=== PATIENT | female | born 1955 | race Caucasian/White ===

== ENCOUNTER 2019-10-19 14:11 | Outpatient (CLI) | payer OTHER, SELFPAY ==
--- NOTE | 2019-10-24 22:24 | P.PCNPFT_ITS ---
PFT Interpretation PFT Interpretation: DOS: 10/19/2019 REQUESTING: Dr. Tucker REASON FOR TESTING: Shortness of breath PULMONARY FUNCTION TESTS Results are reproducible and reliable. Spirometry: FEV1 is 74%, mildly decreased. FVC is 84%, normal. FEV1% is decreased. NEF92-58% is severely decresed at 34%, and increases 26% with br onchodilator. Lung volumes: TLC 102%, normal. RV increased at 122%. Increased airway resistance 178% predicted. Diffusion: DLCO is mildly decreased 74%. Flow volume loop: Scooping of the expiratory limb. IMPRESSION: Mild obstructive ventilatory impairment, which is severe in the small airways with good response to bronchodilator, mild air trapping, and mild diffusion impairment. Jaky Tucker MD
== END 2019-10-19 14:12 | disposition home or self-care (01) ==
LOC: ANHPFT 14:13
PROVIDERS: PCP Family Medicine; Visit Provider Internal Medicine Critical Care Medicine
DX: R05 Cough (principal); R91.8 Other nonspecific abnormal finding of lung field
CPT/HCPCS: 94060; 94726; 94729

== ENCOUNTER 2019-10-26 09:11 | Outpatient (CLI) | payer OTHER, SELFPAY ==
--- NOTE | ~2019-10-26 | CT_ITS ---
EXAMINATION:CT chest high resolution wo va DATE: 10/26/2019 09:56 INDICATION: Cough. TECHNIQUE: Computed tomography (CT) of the chest was performed without intravenous contrast. Automate d exposure control and iterative reconstruction technique were employed. The dose-length product (DLP ) was 140.63 mGy-cm. COMPARISON: Chest CT 10/19/2018 FINDINGS: There is mild scarring at the lung apices. There is mild bronchiectasis in right middle lob e and lingula with mucous plugging. There are centrilobular nodules and tree-in-bud opacities and mil d airspace and groundglass opacities in right middle lobe and lingula with areas of volume loss. No p leural effusion. The heart size is normal. No pericardial effusion. There is levoscoliosis of upper t horacic spine and dextroscoliosis of lower thoracic spine. There is mild thoracic spondylosis. IMPRESSION: 1. 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 Reviewed, dictated and finalized at location B. IMPRESSION: 1. 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
--- NOTE | ~2019-10-26 | XR_ITS ---
XR chest 2V DATE: 10/26/2019 09:53 INDICATION: Chronic cough. Known lung nodules. TECHNIQUE: PA and lateral views COMPARISON: 10/26/2019 CT thorax FINDINGS: There is bilateral hyperinflation. There is chronic infiltrate, atelectasis or fibrotic change overlying the middle lobe and lingula on the lateral view; otherwise no pulmonary infiltrate or consolidation, pleural effusion or pulmonary v ascular congestion or pneumothorax is evident. Normal heart size. No hilar or mediastinal enlargement. Scoliosis of the thoracic spine. IMPRESSION: Chronic infiltrate, atelectasis or scarring overlying middle lobe and lingula Bilateral hyperinflation. Reviewed, dictated and finalized at location A. IMPRESSION: Chronic infiltrate, atelectasis or scarring overlying middle lobe a nd lingula Bilateral hyperinflation.
== END 2019-10-26 09:12 | disposition home or self-care (01) ==
PROVIDERS: PCP Family Medicine; Visit Provider Internal Medicine Critical Care Medicine
DX: R05 Cough (principal); R91.1 Solitary pulmonary nodule; R91.8 Other nonspecific abnormal finding of lung field
CPT/HCPCS: 71046; 71250

== ENCOUNTER 2019-11-13 01:22 | Outpatient (CLI) | payer OTHER, SELFPAY ==
[2019-11-13 16:17] LABS: SARS-CoV-2 RNA PCR Negative
== END 2019-11-13 01:23 | disposition home or self-care (01) ==
LOC: ANHCOVIDDT 01:23
PROVIDERS: PCP Family Medicine; Visit Provider Internal Medicine Critical Care Medicine
DX: Z01.812 Encounter for preprocedural laboratory examination (principal); Z20.828 Contact with and (suspected) exposure to other viral communicable diseases
CPT/HCPCS: 87635; C9803; U0003

== ENCOUNTER 2019-11-15 00:32 | Day surgery (SDC) | payer OTHER, SELFPAY ==
[2019-11-09 11:27] VITALS: BMI 22.4
[2019-11-15] VITALS (7 sets, daily range): BP systolic 115–149; BP diastolic 64–97; PULSE 43–52; RESP 11–18; TEMP 36–36.9; O2SAT 96–100
[2019-11-15] MEDS: LACTATED RINGERS 1,000 ML 150 ML IV CONT (11:48)
--- NOTE | 2019-11-15 12:35 | WPDANESEPPF ---
Anes - Initial Pre Proc Eval Procedure: Operation Date: 11/15/19 13:00 Proposed Procedures p Flexible Bronchoscopy - Jaky Tucker MD Date/Time: 11/15/19 12:35 Surgeon: Jaky Tucker MD Pre Op Diagnosis: Chronic Cough Patient Data Age: 64 Gender: F Height: 5 ft 6 in Weight: 64.8 kg Last Vital Signs Temp 36.9 C 11/15/19 11:45 Pulse 52 L 11/15/19 11:45 Resp 18 11/15/19 11:45 BP 149/97 H 11/15/19 11:45 Pulse Ox 98 11/15/19 11:45 Allergies Allergy/AdvReac Type Severity Reaction Status Date / Time Penicillins Allergy Unknown Unknown Verified 11/15/19 11:41 Home Medications Medication Instructions Recorded Confirmed Type calcium carbonate 500 mg calcium 500 mg PO DAILY 10/22/19 11/09/19 History (1,250 mg) tablet cholecalciferol (vitamin D3) 25 25 mcg PO DAILY 10/22/19 11/09/19 History mcg (1,000 unit) tablet omega 9-pnk-cdz-fish oil 1,000 mg 1 cap PO DAILY 10/22/19 11/09/19 History (120 mg-180 mg) capsule Patient hx anesthesia problems: none Family hx anesthesia problems: none PMFSH Past Medical History Medical History Chronic cough Chronic kidney disease Elevated BP without diagnosis of hypertension Multiple pulmonary nodules determined by computed tomography of lung Pneumonia Family History Family History Sibling Depression Hypertension Father Cerebrovascular accident Family history of chronic obstructive pulmonary disease Family history of Alzheimer's disease Depression Family history of kidney stones Family history of dementia Mother Family history of congestive heart failure Family history of cardiovascular disease Other Family history of Parkinson's disease Family history of atrial fibrillation Social History Social History Smoking status: Never smoker Alcohol intake: current Anes - Eval Final PreProcedure Day of Procedure 11/15/19 12:35 Patient weight: normal Heart: regular rate and rhythm Lungs: rales Airway: Mallampati scale class 1 Neurological: alert and oriented Last oral intake: >/= 8 hours ASA classification: II Emergent: no Anesthetic plan: proceed Anesthesia type and monitoring: general LMA and standard monitoring Informed Consent: The patient's anesthetic plan and its attendant risks and benefits were discussed with the patient/family/POA. Questions were solicited and answers provided to the satisfaction of the patient/family/POA.
--- NOTE | 2019-11-15 12:39 | PM.IMHP ---
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 Last office visit 09/26/2019. She has been stable since that visit, no new meds, diagnoses or change in symptoms. She had initial symptoms with fever in October 2016 and congestion, walking pneumonia in November of 2016 treated with antibiotics. Chest CT November 29 showed lung nodules and emphysema. She had ground-glass opacities in the right upper lobe and scattered small bilateral nodules in both lungs. She has no occupational exposure, and does not have a history of exposure to fowl. She had no exposure to moldy substances, moist conditions, dangerous fumes, dusts or vapors. She has nasal drainage especially in the winter. she attempted to provide sputum for SIVAKUMAR, [employer] but was never able to expectorate. She has chronic kidney disease which is being closely followed. 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 She has had renal problems with abnormal values since 2012. She has had calcium oxalate kidney stones, followed by Dr Von Latham in [place]. DATA: * 11/27/2016 - chest CT ground-glass opacities in the right upper lobe, small bilateral nodules 6 mm or less bilaterally, RML and AURELIANO; mild emphysema. * 10/29/2018 - chest CT - progression of small centrilobular nodules, tree-in-bud lesions, mild bronchiectasis, and numerous bilateral nodules, most likely consistent with chronic atypical pneumonia specifically SIVAKUMAR - Mycobacterium avium intracellulare. * 01/19/2017 PFT FEV1 88%, FEV1% is decreased 68%, [id number] - 45%, no change with bronchodilator; TLC 104%, RV 122%, Raw 226%, DLCO 107%. Small airways pattern, air trapping, no response to bronchodilator. MEDS: Fish oil, Calcium, multivitamin PMH: calcium oxalate kidney stones, CKD stage II, pulmonary nodules, Walking pneumonia November 2016. Review of Systems Review of Systems: All systems reviewed & are unremarkable except as noted in HPI and below (HPI) [facility] Past Medical History Medical History Chronic cough Chronic kidney disease Elevated BP without diagnosis of hypertension Multiple pulmonary nodules determined by computed tomography of lung Pneumonia Family History Family History Sibling Depression Hypertension Father Cerebrovascular accident Family history of chronic obstructive pulmonary disease Family history of Alzheimer's disease Depression Family history of kidney stones Family history of dementia Mother Family history of congestive heart failure Family history of cardiovascular disease Other Family history of Parkinson's disease Family history of atrial fibrillation Social History Social History Smoking status: Never smoker Alcohol intake: current Meds Home Medications and Allergies Home Medications Medication Instructions Recorded Confirmed Type calcium carbonate 500 mg calcium 500 mg PO DAILY 10/22/19 11/09/19 History (1,250 mg) tablet cholecalciferol (vitamin D3) 25 25 mcg PO DAILY 10/22/19 11/09/19 History mcg (1,000 unit) tablet omega 0-pov-yzk-fish oil 1,000 mg 1 cap PO DAILY 10/22/19 11/09/19 History (120 mg-180 mg) capsule Allergies Allergy/AdvReac Type Severity Reaction Status Date / Time Penicillins Allergy Unknown Unknown Verified 11/15/19 11:41 Vital Signs Vital Signs - 24 hr 11/15/19 11:45 Temperature 36.9 C Pulse Rate 52 L Respiratory Rate 18 Blood Pressure 149/97 H Pulse Oximetry 98 Exam Const: General: comfortable and no acute distress HENMT: Other: Mallampati III, moist membranes,
[2019-11-15] MEDS: LIDOCAINE HCL 2% LOCAL INJ 20 ML VIAL 12 ML INFILTRATE (13:21)
--- NOTE | 2019-11-15 13:27 | SUR.OPER ---
300ml Normal Saline administered per irrigation LOT #[id number] EXP. 2021. Suctioned 51ml out by Dr. Tucker during procedure.
[2019-11-15 14:00] LABS: Source Bronchial Fluid Bronchial Lavage
[2019-11-15 14:01] LABS: Appearance Bronchial Fluid Cloudy; Color Bronchial Fluid Colorless; Lymphocytes Bronchial Fluid 15 %; Monocytes Bronchial Fluid 6 %; Neutrophils Bronchial Fluid 75 %
[2019-11-15 14:02] LABS: Other Cells Bronchial Fluid 4 %
== END 2019-11-15 14:37 | disposition home or self-care (01) ==
PROVIDERS: PCP Family Medicine; Visit Provider Internal Medicine Critical Care Medicine
PROC: 0BJ08ZZ Inspection of Tracheobronchial Tree, Via Natural or Artificial Opening Endoscopic (ICD-10-PCS; CPT 31622; principal; 2019-11-15 13:00)
DX: R05 Cough (principal); R91.8 Other nonspecific abnormal finding of lung field; J98.4 Other disorders of lung; N18.9 Chronic kidney disease, unspecified
CPT/HCPCS: 31624; 85999; 87015; 87102; 87116; 87206; 88108; J1100; J2001; J2405; J2704; J7040; J7120

== ENCOUNTER 2020-02-01 16:44 | Outpatient (CLI) | payer OTHER, SELFPAY ==
--- NOTE | ~2020-02-01 | MM_ITS ---
EXAMINATION: MM screening [facility] BI w cara HISTORY: Screening mammogram TECHNIQUE: Craniocaudal and mediolateral oblique 3-D tomosynthesis images were obtained and synthetic 2-D images were generated. CAD analysis was submitted and interpreted. COMPARISON: 12/31/2018, 11/27/2016, 10/10/2014 BREAST PARENCHYMAL COMPOSITION: There are scattered areas of fibroglandular density. FINDINGS: There is no evidence of suspicious mass, calcification, or architectural distortion to sugg est malignancy in either breast. There has been no suspicious interval change. IMPRESSION: 1. No mammographic evidence of malignancy. 2. Recommend routine screening mammography in one year. BI-RADS Category 1: Negative Reviewed, dictated and finalized at location A. 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
== END 2020-02-01 16:45 | disposition home or self-care (01) ==
PROVIDERS: PCP Family Medicine; Visit Provider Family Medicine
DX: Z12.31 Encounter for screening mammogram for malignant neoplasm of breast (principal)
CPT/HCPCS: 77063; 77067

== ENCOUNTER 2020-02-03 10:27 | Emergency (ER) | payer OTHER, SELFPAY ==
[2020-02-03 10:39] VITALS: BP 137/91; PULSE 68; RESP 20; TEMP 36.6; O2SAT 97
--- NOTE | 2020-02-03 10:52 | ED.URI ---
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 Afebrile today, feeling dizzy with sore throat this AM- concern for strep or cold -sister has a cold Related Data Home Medications Medication Instructions Recorded Confirmed calcium carbonate 500 mg calcium 500 mg PO DAILY 10/22/19 02/03/20 (1,250 mg) tablet cholecalciferol (vitamin D3) 25 25 mcg PO DAILY 10/22/19 11/09/19 mcg (1,000 unit) tablet omega 8-bvv-yuk-fish oil 1,000 mg 1 cap PO DAILY 10/22/19 02/03/20 (120 mg-180 mg) capsule Allergies Allergy/AdvReac Type Severity Reaction Status Date / Time Penicillins Allergy Unknown Unknown Verified 02/03/20 11:00 Review of Systems Review of Systems: Narrative: CONSTITUTIONAL: fever last night, chills, sweats. EYES: Denies visual changes, redness, discharge. ENT: Denies rhinorrhea, mild congestion, has sore throat, otalgia. CARDIOVASCULAR: Denies chest pain, palpitations, edema. RESPIRATORY: Denies dyspnea, wheezing, cough GASTROINTESTINAL: Denies abdominal pain, nausea, vomiting, diarrhea. GENITOURINARY: Denies dysuria, hematuria, abnormal discharge SKIN: Denies rash or itching. NEUROLOGIC: Denies numbness, or focal weakness. PSYCHIATRIC: Denies anxiety or depression. [facility] Past Medical History Medical History (Updated 02/03/20 @ 11:07 by Christianne Wise CNP) Chronic cough Chronic kidney disease Elevated BP without diagnosis of hypertension Multiple pulmonary nodules determined by computed tomography of lung Pneumonia Family History Family History Sibling Depression Hypertension Father Cerebrovascular accident Family history of chronic obstructive pulmonary disease Family history of Alzheimer's disease Depression Family history of kidney stones Family history of dementia Mother Family history of congestive heart failure Family history of cardiovascular disease Other Family history of Parkinson's disease Family history of atrial fibrillation Social History Social History Smoking status: Never smoker Alcohol intake: current Comments At time of signature, I agree with nursing past medical, surgical, social and family history. There is no relevant family history pertinent to the presenting complaint. Exam Narrative: Exam Narrative: GENERAL: This is a well-nourished, well-developed patient, in mild distress. HEAD: normocephalic, atraumatic. EYES: Sclera clear/white. Vision is grossly intact. EARS: External ears normal, auditory canals clear and without drainage, TMs normal without perforation. Hearing grossly intact. NOSE: External nose normal mild nasal discharge, nares without redness, mild rhinorrhea. THROAT: Mucous membranes moist, posterior pharynx - no erythema NECK: Neck supple, non-tender CARDIOVASCULAR: Regular rate and rhythm without murmurs, gallops, or rubs. RESPIRATORY: Clear to auscultation. Breath sounds equal bilaterally. No wheezes, rales, or rhonchi. GASTROINTESTINAL: Abdomen soft, non-tender, SKIN: warm, intact with no suspicious lesions or rash, good texture and turgor. NEURO: awake, alert, and oriented to person, place and time. There were no obvious focal neurologic abnormalities. Steady gait EXTREMITIES: Normal range of motion. BACK: Nontender without deformity Course Course Emergency Course: Comes to clinic with mild cold symptoms of rhinorrhea mild sore throat, a temperature 101 last night Strep test and flu swab done- both negative Sent for Covid test Started on antihista
== END 2020-02-03 11:15 | disposition home or self-care (01) ==
PROVIDERS: Emergency Provider Nurse Practitioner; PCP Family Medicine
DX: J06.9 Acute upper respiratory infection, unspecified (principal); Z20.828 Contact with and (suspected) exposure to other viral communicable diseases; N18.9 Chronic kidney disease, unspecified; R91.8 Other nonspecific abnormal finding of lung field
CPT/HCPCS: 87081; 87804; 87880; 99213; G0463

== ENCOUNTER 2020-02-05 06:55 | Outpatient (NON) | payer OTHER, SELFPAY ==
[2020-02-05 20:58] LABS: SARS-CoV-2 RNA PCR Positive
== END 2020-02-05 06:56 ==
PROVIDERS: PCP Family Medicine; Visit Provider Nurse Practitioner
DX: U07.1 COVID-19 (principal)
CPT/HCPCS: 87635; C9803; U0003

== ENCOUNTER 2021-03-17 14:51 | Outpatient (CLI) | payer MEDICARE, SELFPAY ==
--- NOTE | ~2021-03-17 | MM_ITS ---
EXAMINATION: MM screening [facility] BI w cara HISTORY: Screening mammogram TECHNIQUE: Craniocaudal and mediolateral oblique 3-D tomosynthesis images were obtained and synthetic 2-D images were generated. CAD analysis was submitted and interpreted. COMPARISON: 02/01/2020, 12/31/2018, 11/27/2016 BREAST PARENCHYMAL COMPOSITION: There are scattered areas of fibroglandular density. FINDINGS: There is no evidence of suspicious mass, calcification, or architectural distortion to sugg est malignancy in either breast. There has been no suspicious interval change. IMPRESSION: 1. No mammographic evidence of malignancy. 2. Recommend routine screening mammography in one year. BI-RADS Category 1: Negative Reviewed, dictated and finalized at location A. ER
== END 2021-03-17 14:52 | disposition home or self-care (01) ==
LOC: ANHIMG 14:54
PROVIDERS: PCP Family Medicine; Visit Provider Family Medicine
DX: Z12.31 Encounter for screening mammogram for malignant neoplasm of breast (principal)
CPT/HCPCS: 77063; 77067

== ENCOUNTER 2021-04-20 12:30 | Emergency (ER) | payer MEDICARE, SELFPAY ==
--- NOTE | ~2021-04-20 | XR_ITS ---
XR wrist LT min 3V 04/20/2021 13:03 Indication: Left wrist pain after fall Procedure: 4 views left wrist Comparison: No prior studies for comparison. Findings: No fracture, subluxation or dislocation. No erosive changes. Normal mineralization. No sign ificant soft tissue abnormality. No foreign bodies. Impression: 1: No acute bone or joint abnormality. Reviewed, dictated and finalized at location A. 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
[2021-04-20 12:36] VITALS: BP 149/84; PULSE 71; RESP 16; TEMP 37.6; O2SAT 99
--- NOTE | 2021-04-20 13:10 | ED.GENADULT ---
HPI - General Adult General Chief complaint: Extremity Injury, Upper Stated complaint: left wrist injury Source: patient Mode of arrival: ambulatory Limitations: no limitations History of Present Illness HPI narrative: Patient presents for evaluation of left wrist pain. She indicates she slipped on the ice just prior to arrival and fell on her left arm. She did not hit her head nor have loss of consciousness. No other injury. She reports mild, moderate amount of pain in the affected joint, without descriptive quality or numerical rating. Pain is worse with movement. No paresthesias. She is right hand dominant. She has not taken any medication to assist with her symptoms. No additional complaints or concerns. Related Data Home Medications Medication Instructions Recorded Confirmed calcium carbonate 500 mg calcium 500 mg PO DAILY 10/22/19 04/20/21 (1,250 mg) tablet cholecalciferol (vitamin D3) 25 25 mcg PO DAILY 10/22/19 04/20/21 mcg (1,000 unit) tablet omega 9-bip-xtl-fish oil 1,000 mg 1 cap PO DAILY 10/22/19 04/20/21 (120 mg-180 mg) capsule lisinopril 2.5 mg PO DAILY 04/20/21 04/20/21 Allergies Allergy/AdvReac Type Severity Reaction Status Date / Time Penicillins Allergy Unknown Unknown Verified 02/03/20 11:00 Review of Systems Review of Systems: CONSTITUTIONAL: Denies fever, chills, or sweats. EYES: Denies visual changes, redness, or discharge. ENT: Denies rhinorrhea, congestion, sore throat, or otalgia. CARDIOVASCULAR: Denies chest pain, palpitations, or edema. RESPIRATORY: Denies cough or dyspnea. GASTROINTESTINAL: Denies abdominal pain, nausea, vomiting, or diarrhea. GENITOURINARY: Denies dysuria or hematuria. SKIN: Denies rash or itching. MUSCULOSKELETAL: Reports left wrist pain. Denies back pain or myalgia. NEUROLOGIC: Denies headache, numbness, dizziness, or weakness. PSYCHIATRIC: Denies anxiety or depression. [facility] Past Medical History Medical History (Updated 04/20/21 @ 13:42 by Sundar Goodwin, CHANDRA, BC) Chronic cough Chronic kidney disease Hypertension Multiple pulmonary nodules determined by computed tomography of lung Pneumonia Surgical History Surgical History No pertinent past surgical history Family History Family History Sibling Depression Hypertension Father Cerebrovascular accident Family history of chronic obstructive pulmonary disease Family history of Alzheimer's disease Depression Family history of kidney stones Family history of dementia Mother Family history of congestive heart failure Family history of cardiovascular disease Other Family history of Parkinson's disease Family history of atrial fibrillation Social History Social History Smoking status: Never smoker Alcohol intake: current Alcohol use details: occasional Substance use: never Living arrangements: with family Gender identity (if verbalized by the patient): Female Spiritual care concerns: No Exam Narrative: GENERAL: Well-appearing, well-nourished, and in no acute distress. HEAD: Normocephalic, atraumatic. EYES: PERRLA and EOMI. ENT: Nares clear, no rhinorrhea or epistaxis. Mucous membranes moist. Oropharynx without tonsillar hypertrophy exudate or other lesions. Bilateral TMs pearly clark nonbulging NECK: Supple. No adenopathy or masses. No carotid bruits or JVD CHEST: Clear to auscultation. No respiratory distress. No wheezes rales or rhonchi HEART: Regular rate and rhythm. No murmur heard. Normal peripheral pulses. ABDOMEN: Soft, nontender, nondistended, normal active bowel sounds. EXTREMITIES: Tenderness in medial aspect of left wrist with some soft tissue swelling. No crepitus or deformity. 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 Pain in left wrist is re
== END 2021-04-20 13:49 | disposition home or self-care (01) ==
PROVIDERS: Emergency Provider Nurse Practitioner; PCP Family Medicine
DX: S63.502A Unspecified sprain of left wrist, initial encounter (principal); W01.0XXA Fall on same level from slipping, tripping and stumbling without subsequent striking against object, initial encounter; I12.9 Hypertensive chronic kidney disease with stage 1 through stage 4 chronic kidney disease, or unspecified chronic kidney disease; N18.9 Chronic kidney disease, unspecified
CPT/HCPCS: 73110; 99213; G0463

== ENCOUNTER 2022-06-04 09:22 | Outpatient (CLI) | payer MEDICARE, SELFPAY ==
--- NOTE | ~2022-06-04 | MM_ITS ---
EXAMINATION: MM screening [facility] BI w cara HISTORY: Screening TECHNIQUE: Craniocaudal and mediolateral oblique 3-D tomosynthesis images were obtained and synthetic 2-D images were generated. CAD analysis was submitted and interpreted. COMPARISON: Comparison to multiple prior studies sequentially, with oldest reviewed study dated 10/10. BREAST PARENCHYMAL COMPOSITION: Breast composed of scattered areas of fibroglandular density FINDINGS: There is no evidence of suspicious mass, calcification, or architectural distortion to sugg est malignancy in either breast. There has been no suspicious interval change. IMPRESSION: 1. No mammographic evidence of malignancy. 2. Recommend routine screening mammography in one year. BI-RADS Category 1: Negative Reviewed, dictated and finalized at location A.
== END 2022-06-04 09:23 | disposition home or self-care (01) ==
LOC: ANHIMG 09:24
PROVIDERS: PCP Family Medicine; Visit Provider Family Medicine
DX: Z12.31 Encounter for screening mammogram for malignant neoplasm of breast (principal)
CPT/HCPCS: 77063; 77067

== ENCOUNTER 2023-08-14 08:13 | Outpatient (CLI) | payer MEDICARE, SELFPAY ==
--- NOTE | ~2023-08-14 | MM_ITS ---
EXAMINATION: MM screening [facility] BI w cara HISTORY: Screening mammogram TECHNIQUE: Craniocaudal and mediolateral oblique 3-D tomosynthesis images were obtained and synthetic 2-D images were generated. CAD analysis was submitted and interpreted. COMPARISON: 05/15/2022, 03/17/2021 bilateral screening mammogram examinations BREAST PARENCHYMAL COMPOSITION: There are scattered areas of fibroglandular density. FINDINGS: A low-density circumscribed approximately 9 mm opacity is noted posteriorly in the outer up per left breast on MLO view) left MLO, symphysis image ). Diagnostic left mammogram and left monserrat st ultrasound examination are recommended. Otherwise there is no evidence of suspicious mass, calcification, or architectural distortion to sugg est malignancy in either breast. There has been no other suspicious interval change. IMPRESSION: 1. 9 mm circumscribed mass in the posterior outer left breast on MLO view 2. Diagnostic left mammogram and left breast ultrasound examination recommended BI-RADS Category 0: Incomplete: Needs additional imaging evaluation. Reviewed, dictated and finalized at location A.
== END 2023-08-14 08:14 | disposition home or self-care (01) ==
LOC: ANHIMG 08:17
PROVIDERS: PCP Family Medicine; Visit Provider Family Medicine
DX: Z12.31 Encounter for screening mammogram for malignant neoplasm of breast (principal); N63.21 Unspecified lump in the left breast, upper outer quadrant
CPT/HCPCS: 77063; 77067

== ENCOUNTER 2023-09-03 11:03 | Outpatient (CLI) | payer MEDICARE, SELFPAY ==
--- NOTE | ~2023-09-03 | MMUS_ITS ---
EXAMINATION: MM diagnostic [facility] LT w cara, US breast LT limited HISTORY: Follow-up left breast asymmetries TECHNIQUE: Additional 3-D tomosynthesis images of the left breast were performed and synthetic 2-D im ages were generated. CAD analysis was submitted and interpreted. High resolution Limited left breast ultrasound was performed. COMPARISON: Comparison to multiple prior studies sequentially, with oldest reviewed study dated 12/13. BREAST PARENCHYMAL COMPOSITION: Not dense: There are scattered areas of fibroglandular density. FINDINGS: MAMMOGRAPHIC FINDINGS: Left breast asymmetries are less apparent with spot compression and mediolateral views. There are no discrete masses or architectural distortion. ULTRASOUND: Limited left breast ultrasound: Normal heterogeneous echotexture without focal solid or cystic mass. IMPRESSION: 1. No evidence for malignancy in the left breast. 2. Routine yearly screening mammogram and regular clinical breast examination are recommended. BI-RADS Category 1: Negative Reviewed, dictated and finalized at location B. IMPRESSION: 1. No evidence for malignancy in the left breast. 2. Routine yearly screening mammogram and regular clinical breast examination a re recommended. BI-RADS Category 1: Negative
== END 2023-09-03 11:04 | disposition home or self-care (01) ==
PROVIDERS: PCP Family Medicine; Visit Provider Family Medicine
DX: R92.8 Other abnormal and inconclusive findings on diagnostic imaging of breast (principal)
CPT/HCPCS: 76642; 77061; 77065; G0279

== ENCOUNTER 2024-09-20 14:11 | Outpatient (CLI) | payer MEDICARE, SELFPAY ==
--- NOTE | ~2024-09-20 | MM_ITS ---
EXAMINATION: MM screening josue BI w cara HISTORY: Screening TECHNIQUE: Craniocaudal and mediolateral oblique 3-D tomosynthesis images were obtained and synthetic 2-D images were generated. CAD analysis was submitted and interpreted. COMPARISON: Comparison to multiple prior studies sequentially, with oldest reviewed study dated 12/13. BREAST PARENCHYMAL COMPOSITION: Not dense: There are scattered areas of fibroglandular density. FINDINGS: There is no evidence of suspicious mass, calcification, or architectural distortion to sugg est malignancy in either breast. There has been no suspicious interval change. IMPRESSION: 1. No mammographic evidence of malignancy. 2. Recommend routine screening mammography in one year. BI-RADS Category 1: Negative Reviewed, dictated and finalized at location A.
--- OUTSIDE RECORDS SUMMARY | 2024-09-20 14:23 | XMS_ITS | Referral Summary ---
Author Organization [facility] Address [address] [place] [address] Care Team Providers Care Manager Safe Name Role Phone Douglas Elliott MD Primary Care Provider [phone] Encounters Date Type Department Care Team Description 08/11/2024 9:35 AM CDT Lab [facility] [address] [place] [id number] 07/19/2024 11:00 AM CDT Lab [facility] [address] [place] [phone] Lipid screening 07/19/2024 10:00 AM CDT Office Visit [facility] [address] [address] Douglas Elliott MD Colon cancer screening (Primary Dx); Lipid screening; Hypertension, essential; Stage 3a chronic kidney disease (HCC); Annual physical exam 06/23/2024 6:00 PM CDT Office Visit [facility] at [address] [place] [id number] Nilam Joshi NP Bacterial conjunctivitis of right eye (Primary Dx) from Last 3 Months Allergies Active Allergy Reactions Criticality Noted Date Comments Penicillins Medications [id number]-[id number] W-firjuny-tdxt 18 mg iron-400 mcg-450 mg Ca tablet Take by mouth. Active znsbq-3-oxg-epa -dpa-fish oil 1,050-1,200 mg capsule 1 capsule Active calcium carbonate-vitam in D2 (OSCAL) 250 (625)-125 mg-unit per tablet Take 1 tablet by mouth daily Active lisinopriL (PRINIVIL,ZESTR IL) 2.5 mg tablet Take 1 tablet (2.5 mg total) by mouth daily 01/22/2021 Active valACYclovir (VALTREX) 1 gram tablet TAKE 2 TABLETS(2000 MG) BY MOUTH TWICE DAILY FOR 1 DAY 4 tablet 5 12/10/2022 Active Active Problems Problem Noted Date Diagnosed Date Hypertension, essential 07/19/2024 Assessment & Plan (07/19/2024 11:00 AM CDT): Stable on lisinopril and will montior erspnose. NO chest pains/pressures/palpitatinos. Lipid screening 07/19/2024 Assessment & Plan (07/19/2024 11:00 AM CDT): COntinues on omege 3 fatty acids and will follow response. Colon cancer screening 07/19/2024 Assessment & Plan (07/19/2024 11:00 AM CDT): Cologuard ordered and pneding. WIll follow response. Annual physical exam 07/19/2024 Assessment & Plan (07/19/2024 11:01 AM CDT): Focus of exam is prevnetative in nature. Reviewed immunizations, reviewed sun/skin cancer screening. Reivewed colon/breast cancer screening and iwll monitor response. Congratualte on active, healthy lifestyle. WIll montior response. Stage 3a chronic kidney disease 07/09/2023 Assessment & Plan (07/19/2024 11:00 AM CDT): Continue f/u with nephrology for blood pressure and CKD. Will monitor response. Chronic cough 02/10/2022 Elevated BP without diagnosis of hypertension Left wrist sprain 02/10/2022 Multiple pulmonary nodules d etermined by computed tomography of lung 02/10/2022 Hypertension 02/10/2022 Essential hypertension 01/22/2021 Chronic kidney disease 01/18/2017 Immunizations Immunization Administration Dates Next Due Influenza, Quadrivalent, Hig h Dose, Preservative Free, Intrr 02/15/2023 Influenza, Trivalent, IM (MDV) 12/15/2016,2012 Influenza, Unspecified 12/16/2021(Deferr ed: Patient Refused),12/27/2020,12/15/2019,12/14/19 19,11/16/2018(Deferred: Patient Refused),12/13/2017 Moderna SARS-CoV-2 Monovalen t Vaccination (12+ YRS) 01/11/2021,05/25/2020,04/27/2020 PPD TEST 12/28/2016 [facility]OST[facility] LIVE 10/09/2014 Social History Tobacco Use Types Packs/Day Years Used Date Smoking Tobacco: Never Cigarettes Smokeless Tobacco: Never Tobacco Cessation:Counseling Given: Not Answered Alcohol Use Standard Drinks/Week Comments No 0 (1 standard drink = 0.6 oz pur e alcohol) PHQ-2 Answer Date Recorded PHQ-2 Total Score (If total score is 3 or more points, staff should administer the PHQ-9) 0 07/19/2024 Comments Unknown Sex and Gender Information Value Date Recorded Sex Assigned at Not on file Legal Sex Female 7:00 PM HR ADVISOR Gender Identity Not on file Sexual Orientation Straight 05/23/2020 4: 14 PM HR ADVISOR Last Filed Vital Signs Vital Sign Reading Time Taken Comments Blood Pressure 124/68 07/19/2024 10:07 AM CDT Pulse 53 07/19/2024 10:07 AM CDT Temperature 36.4 C (97.5 F) 07/19/2024 10:07 AM CDT Respiratory Rate 16 07/19/2024 10:07 AM CDT Oxygen Saturation 98% 07/19/2024 10:07 AM CDT room air Inhaled Oxygen Concentration - - Weight 67.9 kg (149 lb 9.6 oz) 07/19/2024 10:07 AM CDT Height 167.6 cm (5' 6) 07/19/2024 10:07 AM CDT Body Mass Index 24.15 07/19/2024 10:07 AM CDT Plan of Treatment Not on file Procedures Procedure Name Priority Date/Time Associated Diagnosis Comments EGFR Routine 08/11/2024 9:45 AM CDT URINALYSIS, MICROSCOPIC ONLY Routine 08/11/2024 9:45 AM CDT ALBUMIN CREATININE RATIO, URINE Routine 08/11/2024 9:45 AM CDT BASIC METABOLIC PANEL Routine 08/11/2024 9:45 AM CDT URINALYSIS AND REFLEX TO MICROSCOPIC AND CULTURE Routine 08/11/2024 9:45 AM CDT STOOL DNA COLOGUARD Routine 08/03/2024 12:25 PM CDT Colon cancer screening EGFR Routine 07/19/2024 11:00 AM CDT Lipid screening DIFFERENTIAL AUTO Routine 07/19/2024 11: 00 AM CDT Lipid screening CBC WITH AUTO DIFFERENTIAL Routine 07/19/2024 11:00 AM CDT Lipid screening COMPREHENSIVE METABOLIC PANEL Routine 07/19/2024 11:00 AM CDT Lipid screening LIPID PANEL Routine 07/19/2024 11:00 AM CDT Lipid screening SCREENING MAMMOGRAM BILATERAL W ABRAHAM Schedule Routine, Read Routine (OP Routine) 08/14/2023 Encounter for screening mammogram for malignant neoplasm of breast DEXA AXIAL SKELETON BONE DENSITY 1 OR MORE SITES Schedule Routine, Read Routine (OP Routine) 01/04/2023 10:27 AM CDT Asymptomatic menopausal state COLONOSCOPY Routine 12/21/2011 from Last 3 Months or Most Recently Relevant to Health Maintenance Results * (ABNORMAL) eGFR (08/11/2024 9:45 AM CDT) eGFR 49(L) >=60 mL/min/1. 73 m2 Comment: Interpretive Data Reference Interval Normal >/= 90 mL/min/1.73m2 Mildly decreased* 60 - 89 mL/min/1.73m2 Mildly to moderately decreased 45 - 59 mL/min/1.73m2 Moderately to severely decreased 30 - 44 mL/min/1.73m2 Severely decreased 15 - 29 mL/min/1.73m2 Kidney Failure < 15 mL/min/1.73m2 *Relative to young adult level Estimated glomerular filtration rate is determined by the 2020 CKD-EPI equation recommended by the National Kidney Foundation (A Unifying Approach to GFR Estimation: Recommendations of the NKF-ASK Task Force on Reassessing the Inclusion of Race in Diagnosing Kidney Disease, JASN 2020). The CKD-EPI equation should not be used for patients with unstable renal function and has not been validated in children and those over 70. Current interpretive data was last reviewed 2021. Testing performed by: [address] [address] Blood 08/11/2024 9:45 AM CDT 08/11/2024 2:07 PM CDT Von Latham MD LAB BLOOD ORDERABLES Final Result [facility] ([place]) [facility] Department [place] [address] * (ABNORMAL) Urinalysis reflex to microscopic and culture Urine, clean voided (08/11/2024 9:45 AM CDT) Color, ur Yellow Yellow Comment:Testing performed by : [address] [address] Clarity, ur Clear Clear [facility] ([place]) Comment:Testing performed by : [address] [address] Specific gravity, ur 1.015 1.003 - 1.030 [facility] ([place]) Comment:Testing performed by : [address] [address] pH, urine 6.0 [facility] ([place]) Comment: Interpretive Data U rine pH is affected by diet, medications, systemic acid-base disturbances, and renal tubular function. pH may affect urinary stone formation. For example, urine pH below 6.0 may help reduce the tendency for calcium phosphate stones and pH greater than 6.0 may reduce the tendency for uric acid stone formation. Source: [facility] Current Interpretive Data was last revised on 2017 Testing performed by: [facility], [address] [place] [address]., [address] Protein, ur ql Negative Negative [facility] ([place]) Comment:Testing performed by : [facility], [address] [place] [address], [address] Glucose, ur ql Negative Negative [facility] ([place]) Comment:Testing performed by : [facility], [address] [place] [address], [address] Ketones, ur Negative Negative [facility] ([place]) Comment:Testing performed by : [facility], [address] [place] [address], [address] Bilirubin, ur Negative Negative [facility] ([place]) Comment:Testing performed by : [facility], [address] [place] [address], [address] Blood, ur Negative Negative [facility] ([place]) Comment:Testing performed by : [address], [address] Urobilinogen, ur <2.0 <2.0 mg/dL [facility] ([place]) Comment:Testing performed by : [address], [address] Nitrite, ur Negative Negative [facility] ([place]) Comment:Testing performed by : [address], [address] Leukocyte esterase, ur 2+(A) Negative [facility] ([place]) Comment:Testing performed by : [address], [address] UA reflex comment Reflex to microscopic UA will be performed. [facility] ([place]) Comment:Testing performed by : [address], [address] Urine, clean voided 08/11/2024 9:45 AM CDT 08/11/2024 9:48 AM CDT us Von Latham MD LAB MICROBIOLOGY - GENERAL ORDERABLES Final Result [facility] ([place]) [facility] Department [place] [address] * Albumin Creatinine Ratio, Urine (08/11/2024 9:45 AM CDT) Albumin Ur <12.0 mg/L Comment: Interpretive Data No reference range established. Current interpretive data was last revised 2018. Testing performed by: [facility], [address] [place] [address]., [address] Creatinine Ur 105.9 mg/dL [facility] ([place]) Comment: Interpretive Data No reference range established. Current interpretive data was last revised 2018. Testing performed by: [facility], [address] [place] [address]., [address] Albumin Creatinine Ratio, Ur <11 1 - 29 mg/g [facility] ([place]) Comment:Testing performed by : [facility], [address] [place] [address]., [address] Urine 08/11/2024 9:45 AM CDT 08/11/2024 9:48 AM CDT Von Latham MD LAB URINE ORDERABLES Final Result [facility] ([place]) [facility] Department [place] [address] * (ABNORMAL) Urinalysis, microscopic only (08/11/2024 9:45 AM CDT) WBC, ur 0-5 0 - 5 /HPF Comment:Testing performed by : [address] [address] RBC, ur 0-2 0 - 2 /HPF [facility] ([place]) Comment:Testing performed by : [address] [address] Epithelial cells, squamous, ur 1-5 0 - 5 /HPF [facility] ([place]) Comment:Testing performed by : [address] [address] Mucous, ur Present(A) [facility] ([place]) Comment:Testing performed by : [address] [address] Culture Reflex Comment Reflex conditions for urine culture (WBC >10) not met. [facility] ([place]) Comment:Testing performed by : [address] [address] Urine, clean voided 08/11/2024 9:45 AM CDT 08/11/2024 2:04 PM CDT Von Latham MD LAB URINE ORDERABLES Final Result [facility] ([place]) 1 [facility] Department [place] [address] * (ABNORMAL) Basic metabolic panel (08/11/2024 9:45 AM CDT) Sodium 140 135 - 145 mmol/L Comment:Testing performed by : [address], [address] Potassium, pl 4.2 3.3 - 4.9 mmol/L [facility] ([place]) Comment:Testing performed by : [address], [address] Chloride 104 97 - 110 mmol/L [facility] ([place]) Comment:Testing performed by : [address], [address] CO2 27 22 - 32 mmol/L [facility] ([place]) Comment:Testing performed by : [address], [address] Anion gap 9 2 - 15 mmol/L [facility] ([place]) Comment:Testing performed by : [address], [address] BUN 23 6 - 25 mg/dL [facility] ([place]) Comment:Testing performed by : [address], [address] Creatinine 1.19(H) 0.60 - 1.10 mg/dL [facility] ([place]) Comment:Testing performed by : [address], [address] Glucose 88 70 - 199 mg/dL [facility] ([place]) Comment: Interpretive Data Fasting glucose >/= 126 mg/dl is diagnostic for diabetes. Fasting is defined as no caloric intake for at least 8 hours. Fasting glucose between 100 mg/dl to 125 mg/dl is diagnostic of prediabetes. In a patient with classic symptoms of hyperglycemia or hyperglycemic crisis, a random glucose >/= 200 mg/dl is diagnostic for diabetes. In the absence of unequivocal hyperglycemia, results should be confirmed by repeat testing. The classification and Diagnosis of Diabetes Diabetes Care 2021; 46: S19-S40. Current interpretive data was last revised 2022. Testing performed by: [facility], [address] [place] [address]., [address] Calcium 10.1 8.5 - 10.3 mg/dL [facility] ([place]) Comment:Testing performed by : [facility], [address] [place] [address]., [address] Blood 08/11/2024 9:45 AM CDT 08/11/2024 9:45 AM CDT Von Latham MD LAB BLOOD ORDERABLES Final Result [facility] ([place]) [facility] Department [place] [address] * Stool DNA - Cologuard (08/03/2024 12:25 PM CDT) Stool DNA - Cologuard Negative Negative [facility] (CLIA #:[id number]) Comment: The Cologuard (TM) test was performed on this specimen. NEGATIVE TEST RESULT. A negative Cologuard result indicates a low likelihood that a colorectal cancer (CRC) or advanced adenoma (adenomatous polyps with more advanced pre-malignant features) is present. The chance that a person with a negative Cologuard test has a colorectal cancer is less than 1 in 1500 (negative predictive value >99.9%) or has an advanced adenoma is less than 5.3% (negative predictive value 94.7%). These data are based on a prospective cross-sectional study of 10,000 individuals at average risk for colorectal cancer who were screened with both Cologuard and colonoscopy. (Laury Cordero al, N Engl J Med 2014;370(14):1286- 1297) The normal value (reference range) for this assay is negative. COLOGUARD RE-SCREENING RECOMMENDATION: Periodic colorectal cancer screening is an important part of preventive healthcare for asymptomatic individuals at average risk for colorectal cancer. Following a negative Cologuard result, the [place] [employer] and U.S. Multi-Society Task Force screening guidelines recommend a Cologuard re-screening interval of 3 years. References: [place] [employer] Guideline for Colorectal Cancer Screening: https://www.cancer.org/cancer/onqba-kxegjs-vntijo/hzxproqrp-ldpasqdsz-wmcdrgs/ac s-rec ommendations.html.; Mateo DK, Sheri CR, Wyatt VelazquezK, Colorectal Cancer Screening: Recommendations for Physicians and Patients from the U.S. Multi-Society Task Force on Colorectal Cancer Screening , Am J Gastroenterology 2017; 112:7841-5555. TEST DESCRIPTION: Composite algorithmic analysis of stool DNA-biomarkers with hemoglobin immunoassay. Quantitative values of individual biomarkers are not reportable and are not associated with individual biomarker result reference ranges. Cologuard is intended for colorectal cancer screening of adults of either sex, 45 years or older, who are at average-risk for colorectal cancer (CRC). Cologuard has been approved for use by the U.S. FDA. The performance of Cologuard was established in a cross sectional study of average-risk adults aged 50-84. Cologuard performance in patients ages 45 to 49 years was estimated by sub-group analysis of near-age groups. Colonoscopies performed for a positive result may find as the most clinically significant lesion: colorectal cancer [4.0%], advanced adenoma (including sessile serrated polyps greater than or equal to 1cm diameter) [20%] or non- advanced adenoma [31%]; or no colorectal neoplasia [45%]. These estimates are derived from a prospective cross-sectional screening study of 10,000 individuals at average risk for colorectal cancer who were screened with both Cologuard and colonoscopy. (Laury Cordero al, N Engl J Med 2014;370(14):9669-4020.) Cologuard may produce a false negative or false positive result (no colorectal cancer or precancerous polyp present at colonoscopy follow up). A negative Cologuard test result does not guarantee the absence of CRC or advanced adenoma (pre-cancer). The current Cologuard screening interval is every 3 years. ([place] [employer] and U.S. Multi-Society Task Force). Cologuard performance data in a 10,000 patient pivotal study using colonoscopy as the reference method can be accessed at the following location: www.[employer]Nu[employer]/results. Additional description of the Cologuard test process, warnings and precautions can be found at www.[employer].com. Stool 08/03/2024 12:2 5 PM CDT 08/04/2024 9:26 AM CDT us Douglas Elliott MD LAB BODY FLUIDS AND STOOL S ORDERABLES Final Result [id number] (CLIA #:[id number]) [address] [place] [address] * (ABNORMAL) eGFR (07/19/2024 11:00 AM CDT) eGFR 49(L) >=60 mL/min/1. 73 m2 Comment: Interpretive Data Reference Interval Normal >/= 90 mL/min/1.73m2 Mildly decreased* 60 - 89 mL/min/1.73m2 Mildly to moderately decreased 45 - 59 mL/min/1.73m2 Moderately to severely decreased 30 - 44 mL/min/1.73m2 Severely decreased 15 - 29 mL/min/1.73m2 Kidney Failure < 15 mL/min/1.73m2 *Relative to young adult level Estimated glomerular filtration rate is determined by the 2020 CKD-EPI equation recommended by the National Kidney Foundation (A Unifying Approach to GFR Estimation: Recommendations of the NKF-ASK Task Force on Reassessing the Inclusion of Race in Diagnosing Kidney Disease, JASN 202). The CKD-EPI equation should not be used for patients with unstable renal function and has not been validated in children and those over 70. Current interpretive data was last reviewed 2021. Testing performed by: [facility], [address] [place] [address], [place]., [address] Blood 07/19/2024 11:0 0 AM CDT 07/19/2024 4:25 PM CDT us Doulgas Elliott MD LAB BLOOD ORDERABLES Georgiana jessica Result [facility] ([place]) [facility] Department [place] [address] * Differential, auto (07/19/2024 11:00 AM CDT) Neutrophil abs 3.42 1.50 - 6.50 K/cumm Comment:Testing performed by : [facility], [address] [place] [address]., [address] Imm gran abs 0.02 0.00 - 0.10 K/cumm [facility] ([place]) Comment:Testing performed by : [facility], [address] [place] [address]., [address] Lymphocyte abs 1.97 0.80 - 3.30 K/cumm [facility] ([place]) Comment:Testing performed by : [facility], [address] [place] [address]., [address] Monocyte abs 0.52 0.20 - 0.80 K/cumm [facility] ([place]) Comment:Testing performed by : [facility], [address] [place] [address]., [address] Eosinophil abs 0.18 0.00 - 0.50 K/cumm [facility] ([place]) Comment:Testing performed by : [address] [address] Basophil abs 0.07 0.00 - 0.10 K/cumm [facility] ([place]) Comment:Testing performed by : [address] [address] Neutrophil pct 55.4 % [facility] ([place]) Comment: Interpretive Data Percent cell count reference ranges are not reported, since discordance with absolute values may lead to misinterpretation of CBC data. Current Interpretive Data was last revised on 2017. Testing performed by: [address] [address] Imm gran pct 0.3 % [facility] ([place]) Comment: Interpretive Data Percent cell count reference ranges are not reported, since discordance with absolute values may lead to misinterpretation of CBC data. Current Interpretive Data was last revised on 2017. Testing performed by: [facility], [address] [place] [address]., [address] Lymphocyte pct 31.9 % [facility] ([place]) Comment: Interpretive Data Percent cell count reference ranges are not reported, since discordance with absolute values may lead to misinterpretation of CBC data. Current Interpretive Data was last revised on 2017. Testing performed by: [facility], [address] [place] [address]., [address] Monocyte pct 8.4 % [facility] ([place]) Comment: Interpretive Data Percent cell count reference ranges are not reported, since discordance with absolute values may lead to misinterpretation of CBC data. Current Interpretive Data was last revised on 2017. Testing performed by: [facility], [address] [place] [address]., [address] Eosinophil pct 2.9 % [facility] ([place]) Comment: Interpretive Data Percent cell count reference ranges are not reported, since discordance with absolute values may lead to misinterpretation of CBC data. Current Interpretive Data was last revised on 2017. Testing performed by: [facility], [address] [place] [address]., [address] Basophil pct 1.1 % [facility] ([place]) Comment: Interpretive Data Percent cell count reference ranges are not reported, since discordance with absolute values may lead to misinterpretation of CBC data. Current Interpretive Data was last revised on 2017. Testing performed by: [address] [address] Blood 07/19/2024 11:0 0 AM CDT 07/19/2024 3:53 PM CDT us Douglas Elliott MD LAB BLOOD ORDERABLES Georgiana lopez Result [facility] ([place]) [facility] Department [place] [address] * (ABNORMAL) CBC with auto differential (07/19/2024 11:00 AM CDT) WBC 6.18 3.80 - 9.90 K/cumm Comment:Testing performed by : [facility], [address] [place] [address], [address] Hgb 14.3 11.9 - 15.5 g/dL [facility] ([place]) Comment:Testing performed by : [address], [address] Hct 45.6(H) 35.6 - 45.5 % [facility] ([place]) Comment:Testing performed by : [address], [address] Plt 295 150 - 400 K/cumm [facility] ([place]) Comment:Testing performed by : [address], [address] MPV 10.0 9.1 - 12.3 fL [facility] ([place]) Comment:Testing performed by : [address], [address] RBC 5.28(H) 3.90 - 5.20 M/cumm [facility] ([place]) Comment:Testing performed by : [address], [address] MCV 86.4 81.3 - 96.4 fL [facility] ([place]) Comment:Testing performed by : [address], [address] MCH 27.1 27.1 - 33.3 pg [facility] ([place]) Comment:Testing performed by : [address], [address] MCHC 31.4(L) 32.3 - 35.7 g/dL [facility] ([place]) Comment:Testing performed by : [address], [address] RDW CV 14.7 11.1 - 14.9 % [facility] ([place]) Comment:Testing performed by : [address], [address] RDW SD 46.9 35.7 - 48.1 fL [facility] ([place]) Comment:Testing performed by : [address], [address] NRBC abs 0.00 0.00 - 0.01 K/cumm [facility] ([place]) Comment:Testing performed by : [facility], [address] [place] [address]., [address] Blood 07/19/2024 11:0 0 AM CDT 07/19/2024 3:53 PM CDT Douglas Elliott MD LAB BLOOD ORDERABLES Georgiana jessica Result [facility] ([place]) [facility] Department [place] [address] * (ABNORMAL) Lipid panel (07/19/2024 11:00 AM CDT) Cholesterol 230(H) 30 - 199 mg/dL Comment: Interpretive Data Ages < or = 19 years Acceptable: <170 mg/dL Borderline high: 170-199 mg/dL High: >or= 200 mg/dL Ages > or = 20 years Desirable: <200 mg/dL Borderline high: 200-239 mg/dL High: >or= 240 mg/dL Literature References: 1. Expert Panel on Integrated Guidelines for Cardiovascular Health and Risk Reduction in Children and Adolescents. Pediatrics 2011;128:S213 2. NCEP Expert Panel. Circulation 2004;110:227 Current Interpretive Data was last revised on 2017. Testing performed by: [facility], [address] [place] [address]., [address] Triglycerides 51 <=149 mg/dL [facility] ([place]) Comment: Interpretive Data Ages < or = 9 years Acceptable: <75 mg/dL Borderline high: 75-99 mg/dL High: >or= 100 mg/dL Ages 10 to 20 years Acceptable: <90 mg/dL Borderline high: 90-129 mg/dL High: >or= 130 mg/dL Ages > or = 20 years Desirable: <150 mg/dL Borderline high: 150-199 mg/dL High: 200-499 mg/dL Very high: >or= 499 mg/dL Literature References: 1. Expert Panel on Integrated Guidelines for Cardiovascular Health and Risk Reduction in Children and Adolescents. Pediatrics 2011;128:S213 2. NCEP Expert Panel. Circulation 2004;110:227 Current Interpretive Data was last revised on 2017. Testing performed by: [facility], [address] [place] [address]., [address] HDL 74 >=40 mg/dL [facility] ([place]) Comment: Interpretive Data Ages < or = 19 years Acceptable: >45 mg/dL Borderline low: 40-45 mg/dL Low: <40 mg/dL Ages > or = 20 years Desirable: >or= 60 mg/dL Low: <40 mg/dL Literature References: 1. Expert Panel on Integrated Guidelines for Cardiovascular Health and Risk Reduction in Children and Adolescents. Pediatrics 2011;128:S213 2. NCEP Expert Panel. Circulation 2004;110:227 Current Interpretive Data was last revised on 2017. Testing performed by: [address] [address] LDL, calculated 147(H) <=129 mg/dL [facility] ([place]) Comment: Interpretive Data Ages < or = 19 years Acceptable: <110 mg/dL Borderline high: 110-129 mg/dL High: >or= 130 mg/dL Ages > or = 20 years Optimal: <100 mg/dL Near optimal: 100-129 mg/dL Borderline high: 130-159 mg/dL High: >160 mg/dL Calculated using the Dyllan LDL-C estimating equation. This equation was implemented on 2023. Prior to this date LDL-C was estimated using the Friedewald equation. Literature References: 1. Expert Panel on Integrated Guidelines for Cardiovascular Health and Risk Reduction in Children and Adolescents. Pediatrics 2011;128:S213 2. NCEP Expert Panel. Circulation 2004;110:227 3. Dyllan Cortez et al. RICARDO Cardiol. 2020 July 13;5(5):540-548. doi: 10.1001/jamacardio.2020.0013 Current Interpretive Data was last revised on 2023. Testing performed by: [facility], [address] [place] [address]., [address] Non-HDL Cholesterol 156 mg/dL NATALIIA WOLFF (MK) Comment: Interpretive Data Ages < or = 19 years Acceptable: <120 mg/dL Borderline high: 120-144 mg/dL High: >145 mg/dL Ages > or = 20 years When triglycerides are >200 mg/dL, Non-HDL cholesterol is a secondary target of therapy with treatment goals that are 30 mg/dL greater than the LDL cholesterol target. Literature References: 1. Expert Panel on Integrated Guidelines for Cardiovascular Health and Risk Reduction in Children and Adolescents. Pediatrics 2011;128:S213 2. NCEP Expert Panel. Circulation 2004;110:227 Current Interpretive Data was last revised on 2017. Testing performed by: [facility], [address] [place] [address]., [address] Chol/HDL ratio 3 [facility] (MK) Comment:Testing performed by : [address] [address] Blood 07/19/2024 11:0 0 AM CDT 07/19/2024 3:53 PM CDT Douglas Elliott MD LAB BLOOD ORDERABLES Georgiana lopez Result NATALIIA WOLFF (MK) 1 [facility] Department [place] [address] * (ABNORMAL) Comprehensive metabolic panel (07/19/2024 11:00 AM CDT) Sodium 140 135 - 145 mmol/L Comment:Testing performed by : [address] [address] Potassium, pl 4.3 3.3 - 4.9 mmol/L [facility] (MK) Comment:Testing performed by : [address] [address] Chloride 103 97 - 110 mmol/L [facility] (MK) Comment:Testing performed by : [address] [address] CO2 28 22 - 32 mmol/L [facility] (MK) Comment:Testing performed by : [address] [address] Anion gap 9 2 - 15 mmol/L [facility] (MK) Comment:Testing performed by : [address] [address] BUN 23 6 - 25 mg/dL [facility] (MK) Comment:Testing performed by : [facility], [address], [place]., [address] Creatinine 1.20(H) 0.60 - 1.10 mg/dL [facility] (MK) Comment:Testing performed by : [address], [address] Glucose 89 70 - 199 mg/dL [facility] (MK) Comment: Interpretive Data Fasting glucose >/= 126 mg/dl is diagnostic for diabetes. Fasting is defined as no caloric intake for at least 8 hours. Fasting glucose between 100 mg/dl to 125 mg/dl is diagnostic of prediabetes. In a patient with classic symptoms of hyperglycemia or hyperglycemic crisis, a random glucose >/= 200 mg/dl is diagnostic for diabetes. In the absence of unequivocal hyperglycemia, results should be confirmed by repeat testing. The classification and Diagnosis of Diabetes Diabetes Care 2021; 46: S19-S40. Current interpretive data was last revised 2022. Testing performed by: [address], [address] Calcium 10.2 8.5 - 10.3 mg/dL [facility] (MK) Comment:Testing performed by : [address], [address] Bilirubin, total 0.6 0.1 - 1.2 mg/dL [facility] (MK) Comment:Testing performed by : [address], [address] Protein, pl 7.2 6.5 - 8.5 g/dL [facility] (MK) Comment:Testing performed by : [address], [address] Albumin 4.2 3.5 - 5.0 g/dL [facility] (MK) Comment:Testing performed by : [address], [address] Alk phos 78 40 - 130 Units/L [facility] (MK) Comment:Testing performed by : [address], [address] ALT 16 7 - 45 Units/L [facility] (MK) Comment:Testing performed by : [address], [address] AST 32 10 - 45 Units/L [facility] (MK) Comment:Testing performed by : [facility] [id number], [place]., [address] Blood 07/19/2024 11:0 0 AM CDT 07/19/2024 3:53 PM CDT Douglas Elliott MD LAB BLOOD ORDERABLES Georgiana l Result NATALIIA WOLFF [place] 1 [facility] Department [place] [address] * Screening Mammogram Bilateral W Abraham (08/14/2023) Anatomical Region Laterality Modality Breast Bilateral Mammography Douglas Elliott MD IMG MAMMO PROCEDURES Georgiana l Result * Dexa Axial Skeleton Bone Density 1 Or 2 Site (01/04/2023 10:27 AM CDT) Anatomical Region Laterality Modality Body N/A Other 01/05/2023 6:08 PM CDT Narrative 01/05/2023 6:09 PM CDT EXAM DESCRIPTION: DEXA AXIAL SKELETON BONE DENSITY 1 OR MORE SITES REASON FOR STUDY: 67 y/o year old F with given history of: asymptomatic menopausal state Osteoporosis screening Post menopausal. Patient takes vitamin-D and calcium. History of skin carcinoma. 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 IMPRESSION: Normal bone mass. REFERENCE: Bone mineral density: Normal (T-score above or = -1.0) Low bone mass (T-score between -1.0 and -2.5) replaces the previously used term osteopenia Osteoporosis (T-score = or below -2.5) Medical evaluation for secondary causes of low bone mineral density may be appropriate. FRAX is a World Health Organization validated fracture risk assessment tool that calculates a person's 10 year probability of a major osteoporosis related fracture and hip fracture. According to the National Osteoporosis Foundation guidelines, postmenopausal women and men age 50 or older with low bone mass and a 10 year probability of a major osteoporosis related fracture = or greater than 20% or a 10 year probability of a hip fracture = or greater than 3% should be considered for treatment. For further information, including treatment recommendations, please refer to the 2019 ISCD Official Positions (http://www.iscd.org) and the NOF's Clinician's Guide to Prevention and Treatment of Osteoporosis (http://www.nof.org/professionals/clinical-guidelines) THIS IS AN ELECTRONICALLY VERIFIED FINAL REPORT 01/05/2023 6:09 PM - Electronically signed by Martha Silva M.D. TW: TW Report ID: [id number] Reading Location: [id number] Procedure Note Martha Silva MD - 01/05/2023 EXAM DESCRIPTION: DEXA AXIAL SKELETON BONE DENSITY 1 OR MORE SITES REASON FOR STUDY: 67 y/o year old F with given history of:asymptomatic menopausal state Osteoporosis screening Post menopausal. Patient takes vitamin-D andcalcium. History of skin carcinoma. 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 IMPRESSION: Normal bone mass. REFERENCE: Bone mineral density: Normal (T-score above or = -1.0) Low bone mass (T-score between -1.0 and -2.5) replaces thepreviously used term osteopenia Osteoporosis (T-score = or below -2.5) Medical evaluation for secondary causes of low bone mineral density may be appropriate. FRAX is a World Health Organization validated fracture risk assessmenttool that calculates a person's 10 year probability of a major osteoporosisrelated fracture and hip fracture. According to the National OsteoporosisFoundation guidelines, postmenopausal women and men age 50 or older with low bonemass and a 10 year probability of a major osteoporosis related fracture = or greater than 20% or a 10 year probability of a hip fracture = or greaterthan 3% should be considered for treatment. For further information, including treatment recommendations, please referto the 2019 ISCD Official Positions (http://www.iscd.org) and the NOF's Clinician's Guide to Prevention and Treatment of Osteoporosis (http://www.nof.org/professionals/clinical-guidelines) THIS IS AN ELECTRONICALLY VERIFIED FINAL REPORT 01/05/2023 6:09 PM - Electronically signed by Martha Silva M.D. TW: TW Report ID: [id number] Reading Location: [place] [address] Douglas Elliott MD IMG DXA PROCEDURES Final Result * Colonoscopy (12/21/2011) Anatomical Region Laterality Modality Other Historical Provider ENDOSCOPY PROCEDURES Georgiana l Result from Last 3 Months or Most Recently Relevant to Health Maintenance Insurance [employer] [facility] Address: [address] [place] [address] [employer] Care Teams Manager Safe Relationship Specialty Start Date End Date Douglas Elliott MD [address] [place] [address] PCP - General Family Medicine 11/18/18
--- OUTSIDE RECORDS SUMMARY | 2024-09-20 14:23 | XMS_ITS | Clinical Summary ---
Author Organization [facility] Address [address] [place] [address] Care Team Providers Care Sociology Teacher Name Role Phone Douglas Elliott MD Primary Care Provider [phone] Allergies Active Allergy Reactions Criticality Noted Date Comments Penicillins Medications xmcbgvat-pocg-N R-yhzgmgd-wrqt 18 mg iron-400 mcg-450 mg Ca tablet Take by mouth. Active evcpp-8-cnj-epa -dpa-fish oil 1,050-1,200 mg capsule 1 capsule [...] Essential hypertension 01/22/2021 Chronic kidney disease 01/18/2017 Encounters Date Type Department Care Team Description 08/11/2024 9:35 AM CDT Lab [facility] [address] [place] [id number] 07/19/2024 11:00 AM CDT Lab [facility] [address] [place] [phone] Lipid screening 07/19/2024 10:00 AM CDT Office Visit [facility] [address] [phone] Douglas Elliott MD Colon cancer screening (Primary Dx); Lipid screening; Hypertension, essential; Stage 3a chronic kidney disease (HCC); Annual physical exam 06/23/2024 6:00 PM CDT Office Visit [facility] [address] [place] [address] Nliam Joshi, BOTTOM CAGER Bacterial conjunctivitis of right eye (Primary Dx) from Last 3 Months Immunizations Immunization Administration Dates Next Due Influenza, Quadrivalent, Hig h Dose, Preservative Free, Intrr 02/15/2023 Influenza, Trivalent, IM (MDV) 12/15/2016,2012 Influenza, Unspecified 12/16/2021(Deferr ed: Patient Refused),12/27/2020,12/15/2019,12/14/19 19,11/16/2018(Deferred: Patient Refused),12/13/2017 Moderna SARS-CoV-2 Monovalen t Vaccination (12+ YRS) 01/11/2021,05/25/2020,04/27/2020 PPD TEST 12/28/2016 ZOSTER LIVE 10/09/2014 Surgical History Surgery Date Site/Laterality Comments WRIST SURGERY Right FRACTURE SURGERY right wrist; pin and screws Medical History Medical History Date Comments Chronic kidney disease Lung nodule 2016 Hypertension Family History Medical History Relation Name Comments Clotting disorder Brother Laci Akhtar COPD Father Norirs Akhtar Depression Father Norris Akhtar Memory loss Father Norris Akhtar Stroke Father Norris Akhtar Arthritis Mother Sully Akhtar Heart disease Mother Sully Akhtar Hypertension Mother Sully Akhtar Cancer Mother's Sister 1 Yamilet Woalisa Diabetes Mother's Sister 2 Malia Narup Cancer Other 1 Family history of Cancer; Diabetes Other 2 Family history of Diabetes mellitus; Heart disease Other 3 Family history of Heart disease; Hypertension Other 4 Family history of Hypertension; Relation Name Status Comments Brother Laci Akhtar Father Norris Akhtar Mother Sully Akhtar Mother's Sister 1 Yamiletalexander Simmonsel Mother's Sister 2 Malia Narup Other 1 Other 2 Other 3 Other 4 Social History Tobacco Use Types Packs/Day Years [...] on file 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 Gender Identity Not on file Sexual Orientation Straight 05/23/2020 4: 14 PM 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 Obstetrics History Last Filed Vital Signs Vital Sign Reading [...] 07/19/2024 10:07 AM CDT Plan of Treatment Health Maintenance Due Date Last Done Comments Hepatitis C Screening 1955 DTaP/Tdap/Td Vaccine (1 - Tdap) 1965 Hepatitis B Screening 02/26/1972 Pneumococcal vaccine 65+ (1 of 1 - PCV) 02/26/2004 Zoster Vaccine (2 of 3) 12/04/2014 10/09/2014 Covid-19 Vaccine (4 - 2023-2 5 season) 2023 01/11/2021, 05/25/2020, 04/27/2020 Breast Cancer Screening-Mammogram 08/13/2024 08/14/2023, 06/04/2022, 03/17/2021, Additional history exists Influenza Vaccine (#1) 2024 , 12/27/2020, 12/15/2019, Additional history exists Osteoporosis Screening-Bone Density Scan 01/04/2025 01/04/2023 Depression Screening 07/19/2025 07/19/2024, 07/05/2023, 12/14/2022, Additional history exists Fall Risk Assessment 07/19/2025 07/19/2024, 07/05/2023, 06/09/2022, Additional history exists Well Visit 65+ 07/19/2025 07/19/2024, 06/14, 06/09/2022, Additional history exists Colon Cancer Screening-DNA Stool 08/04/2027 08/03/2024, 06/27/2021, 06/27/2021, Additional history exists Colon Cancer Screening-CT Colonography Discontinued 12/21/2011 Colon Cancer Screening-Colonoscopy Discontinued 12/21/2011 Colon Cancer Screening-Sigmoidoscopy Discontinued 12/21/2011 Colon Cancer Screening-FIT Discontinued 08/03, 06/27/2021, 06/27/2021, Additional history exists Procedures Procedure Name Priority Date/Time Associated Diagnosis [...] was last reviewed 2021. Testing performed by: [facility], [address] [place] [address]., [address] Blood 08/11/2024 9:45 AM CDT 08/11/2024 2:07 PM CDT us Von Latham MD LAB BLOOD ORDERABLES Final Result NATALIIA [facility] ([place]) [facility] Department of Laboratories [place], [place] [id number] * (ABNORMAL) Urinalysis reflex to microscopic and culture Urine, clean voided (08/11/2024 9:45 AM CDT) Color, ur Yellow Yellow Comment:Testing performed by : [address] [address] Clarity, ur Clear Clear NATALIIA [facility] ([place]) Comment:Testing performed by : [address] [address] Specific gravity, ur 1.015 1.003 - 1.030 [facility] (MK) Comment:Testing performed by : [address], [address] pH, urine 6.0 [facility] (MK) Comment: Interpretive Data U rine pH is affected by diet, medications, systemic acid-base disturbances, and renal tubular function. pH may affect urinary stone formation. For example, urine pH below 6.0 may help reduce the tendency for calcium phosphate stones and pH greater than 6.0 may reduce the tendency for uric acid stone formation. Source: [facility] [employer] Current Interpretive Data was last revised on 2017 Testing performed by: [facility], [address] [place] [address]., [address] Protein, ur ql Negative Negative [facility] (MK) Comment:Testing performed by : [address], [address] Glucose, ur ql Negative Negative [facility] (MK) Comment:Testing performed by : [address], [address] Ketones, ur Negative Negative [facility] (MK) Comment:Testing performed by : [address], [address] Bilirubin, ur Negative Negative [facility] (MK) Comment:Testing performed by : [address], [address] Blood, ur Negative Negative [facility] (MK) Comment:Testing performed by : [address], [address] Urobilinogen, ur <2.0 <2.0 mg/dL [facility] (MK) Comment:Testing performed by : [address], [address] Nitrite, ur Negative Negative [facility] (MK) Comment:Testing performed by : [address], [address] Leukocyte esterase, ur 2+(A) Negative [facility] (MK) Comment:Testing performed by : [address], [address] UA reflex comment Reflex to microscopic UA will be performed. [facility] (MK) Comment:Testing performed by : [address] [place]., [address] Urine, clean voided 08/11/2024 9:45 AM CDT 08/11/2024 9:48 AM CDT Von Latham MD LAB MICROBIOLOGY - GENERAL ORDERABLES Final Result Performing Organization Address [facility]/ZIP Co de Phone Number NATALIIA WOLFF (MK) 1 [facility] [place] [address] * Albumin Creatinine Ratio, Urine (08/11/2024 9:45 AM CDT) Albumin Ur <12.0 mg/L Comment: Interpretive Data No reference range established. Current interpretive data was last revised 2018. Testing performed by: [address] [address] Creatinine Ur 105.9 mg/dL NATALIIA WOLFF (MK) Comment: Interpretive Data No reference range established. Current interpretive data was last revised 2018. Testing performed by: [facility], [address] [place] [address]., [address] Albumin Creatinine Ratio, Ur <11 1 - 29 mg/g NATALIIA WOLFF (MK) Comment:Testing performed by : [address] [address] Urine 08/11/2024 9:45 AM CDT 08/11/2024 9:48 AM CDT us Von Latham MD LAB URINE ORDERABLES Final Result Performing Organization Address City/[facility]/ZIP Co de Phone Number NATALIIA WOLFF (MK) 1 [facility] [place] [address] * (ABNORMAL) Urinalysis, microscopic only (08/11/2024 9:45 AM CDT) WBC, ur 0-5 0 - 5 /HPF Comment:Testing performed by : [address], [address] RBC, ur 0-2 0 - 2 /HPF NATALIIA WOLFF (MK) Comment:Testing performed by : [address] [address] Epithelial cells, squamous, ur 1-5 0 - 5 /HPF NATALIIA WOLFF (MK) Comment:Testing performed by : [facility], [address] [place] [address]., [address] Mucous, ur Present(A) NATALIIA [place] (MK) Comment:Testing performed by : [address], [address] Culture Reflex Comment Reflex conditions for urine culture (WBC >10) not met. NATALIIA WOLFF (MK) Comment:Testing performed by : [facility], [address] [place] [address], [address] Urine, clean voided 08/11/2024 9:45 AM CDT 08/11/2024 2:04 PM CDT us Von Latham MD LAB URINE ORDERABLES Final Result NATALIIA WOLFF (MK) 1 [facility] Department [place] [address] * (ABNORMAL) Basic metabolic panel (08/11/2024 9:45 AM CDT) Sodium 140 135 - 145 mmol/L Comment:Testing performed by : [address], [address] Potassium, pl 4.2 3.3 - 4.9 mmol/L NATALIIA WOLFF (MK) Comment:Testing performed by : [address], [address] Chloride 104 97 - 110 mmol/L NATALIIA WOLFF (MK) Comment:Testing performed by : [address], [address] CO2 27 22 - 32 mmol/L NATALIIA WOLFF (MK) Comment:Testing performed by : [address], [address] Anion gap 9 2 - 15 mmol/L NATALIIA WOLFF (MK) Comment:Testing performed by : [address], [address] BUN 23 6 - 25 mg/dL NATALIIA WOLFF (MK) Comment:Testing performed by : [facility], [address] [place] [address]., [address] Creatinine 1.19(H) 0.60 - 1.10 mg/dL NATALIIA WOLFF (MK) Comment:Testing performed by : [facility], [address] [place] [address]., [address] Glucose 88 70 - 199 mg/dL NATALIIA WOLFF (MK) Comment: Interpretive Data Fasting glucose >/= [...] classification and Diagnosis of Diabetes Diabetes Care 202; 46: S19-S40. Current interpretive data was last revised 2022. Testing performed by: [facility], [address] [place] [address]., [address] Calcium 10.1 8.5 - 10.3 mg/dL NATALIIA WOLFF (MK) Comment:Testing performed by : [address] [address] Blood 08/11/2024 9:45 AM CDT 08/11/2024 9:45 AM CDT us Von Latham MD LAB BLOOD ORDERABLES Final Result NATALIIA WOLFF ([place]) 1 [facility] Department [place] [address] * Stool DNA - Cologuard (08/03/2024 12:25 PM CDT) Pathologist [facility] Stool DNA - Cologuard Negative Negative [facility] (CLIA #:[id number]) Comment: The Cologuard (TM) test was performed [...] screened with both Cologuard and colonoscopy. (Laury Henderson et al, N Engl J Med 2014;370(14):1286- 1297) The normal value (reference range) for this assay is negative. COLOGUARD RE-SCREENING RECOMMENDATION: Periodic colorectal cancer screening is an important part of preventive healthcare for asymptomatic individuals at average risk for colorectal cancer. Following a negative Cologuard result, the [place] Cancer Society and U.S. Multi-Society Task Force screening guidelines recommend a Cologuard re-screening interval of 3 years. References: [place] [employer] Guideline for Colorectal Cancer Screening: https://www.cancer.org/cancer/kwhvo-rwhdxm-hwxgks/prxajhvgj-mzuzybakx-wetbren/ac s-rec ommendations.html.; Mateo DK, Sheri VERNON, Wyatt VelazquezK, Colorectal Cancer Screening: Recommendations for Physicians and Patients from the U.S. Multi-Society Task Force on Colorectal Cancer Screening , Am J Gastroenterology 2017; 112:8721-3924. TEST DESCRIPTION: Composite algorithmic analysis of stool [...] (Laury Cordero al, N Engl J Med 2014;370(14):5761-3682.) Cologuard may produce a false negative or false positive result (no colorectal cancer or precancerous polyp present at colonoscopy follow up). A negative Cologuard test result does not guarantee the absence of CRC or advanced adenoma (pre-cancer). The current Cologuard screening interval is every 3 years. ([place] Cancer Society and U.S. Multi-Society Task Force). Cologuard performance data in a 10,000 patient pivotal study using colonoscopy as the reference method can be accessed at the following location: www.[employer]/results. Additional description of the Cologuard test process, warnings and precautions can be found at www.Bionomicsrd.InSequent. Stool 08/03/2024 12:2 5 PM CDT 08/04/2024 9:26 AM CDT Douglas Elliott MD LAB BODY FLUIDS AND STOOL S ORDERABLES Final Result [employer] (CLIA #:[id number]) [address] [place] [address] * (ABNORMAL) eGFR (07/19/2024 11:00 AM CDT) [...] was last reviewed 2021. Testing performed by: [facility], [address] [place] [address]., [address] Blood 07/19/2024 11:0 0 AM CDT 07/19/2024 4:25 PM CDT us Douglas Elliott MD LAB BLOOD ORDERABLES Georgiana lopez Result NATALIIA WOLFF ([place]) 1 [facility] Department [place] [address] * Differential, auto (07/19/2024 11:00 AM CDT) Neutrophil abs 3.42 1.50 - 6.50 K/cumm Comment:Testing performed by : [facility], [address] [place] [address]., [address] Imm gran abs 0.02 0.00 - 0.10 K/cumm [facility] (MK) Comment:Testing performed by : [address] [address] Lymphocyte abs 1.97 0.80 - 3.30 K/cumm [facility] (MK) Comment:Testing performed by : [address] [address] Monocyte abs 0.52 0.20 - 0.80 K/cumm [facility] (MK) Comment:Testing performed by : [facility], [address] [place] [address]., [address] Eosinophil abs 0.18 0.00 - 0.50 K/cumm [facility] (MK) Comment:Testing performed by : [address] [address] Basophil abs 0.07 0.00 - 0.10 K/cumm [facility] (MK) Comment:Testing performed by : [address], [address] Neutrophil pct 55.4 % [facility] (MK) Comment: Interpretive Data Percent cell count reference ranges are not reported, since discordance with absolute values may lead to misinterpretation of CBC data. Current Interpretive Data was last revised on 2017. Testing performed by: [facility], [address] [place] [address]., [address] Imm gran pct 0.3 % [facility] (MK) Comment: Interpretive Data Percent cell count reference ranges are not reported, since discordance with absolute values may lead to misinterpretation of CBC data. Current Interpretive Data was last revised on 2017. Testing performed by: [address] [address] Lymphocyte pct 31.9 % [facility] (MK) Comment: Interpretive Data Percent cell count reference ranges are not reported, since discordance with absolute values may lead to misinterpretation of CBC data. Current Interpretive Data was last revised on 2017. Testing performed by: [address] [address] Monocyte pct 8.4 % [facility] (MK) Comment: Interpretive Data Percent cell count reference ranges are not reported, since discordance with absolute values may lead to misinterpretation of CBC data. Current Interpretive Data was last revised on 2017. Testing performed by: [address] [address] Eosinophil pct 2.9 % [facility] (MK) Comment: Interpretive Data Percent cell count reference ranges are not reported, since discordance with absolute values may lead to misinterpretation of CBC data. Current Interpretive Data was last revised on 2017. Testing performed by: [address] [address] Basophil pct 1.1 % [facility] (MK) Comment: Interpretive Data Percent cell count reference ranges are not reported, since discordance with absolute values may lead to misinterpretation of CBC data. Current Interpretive Data was last revised on 2017. Testing performed by: [address] [address] Blood 07/19/2024 11:0 0 AM CDT 07/19/2024 3:53 PM CDT us Douglas Elliott MD LAB BLOOD ORDERABLES Georgiana l Result [facility] (MK) 1 [facility] [place] [address] * (ABNORMAL) CBC with auto differential (07/19/2024 11:00 AM CDT) WBC 6.18 3.80 - 9.90 K/cumm Comment:Testing performed by : [address], [address] Hgb 14.3 11.9 - 15.5 g/dL [facility] (MK) Comment:Testing performed by : [address], [address] Hct 45.6(H) 35.6 - 45.5 % [facility] (MK) Comment:Testing performed by : [address], [address] Plt 295 150 - 400 K/cumm [facility] (MK) Comment:Testing performed by : [address], [address] MPV 10.0 9.1 - 12.3 fL [facility] (MK) Comment:Testing performed by : [address], [address] RBC 5.28(H) 3.90 - 5.20 M/cumm [facility] (MK) Comment:Testing performed by : [address], [address] MCV 86.4 81.3 - 96.4 fL [facility] (MK) Comment:Testing performed by : [address], [address] MCH 27.1 27.1 - 33.3 pg [facility] (MK) Comment:Testing performed by : [address], [address] MCHC 31.4(L) 32.3 - 35.7 g/dL [facility] (MK) Comment:Testing performed by : [address], [address] RDW CV 14.7 11.1 - 14.9 % NATALIIA WOLFF (MK) Comment:Testing performed by : [facility], [address] [place] [address]., [address] RDW SD 46.9 35.7 - 48.1 fL NATALIIA WOLFF (MK) Comment:Testing performed by : [facility], [address] [place] [address]., [address] NRBC abs 0.00 0.00 - 0.01 K/cumm NATALIIA WOLFF (MK) Comment:Testing performed by : [facility], [address] [place] [address]., [address] Blood 07/19/2024 11:0 0 AM CDT 07/19/2024 3:53 PM CDT us Douglas Elliott MD LAB BLOOD ORDERABLES Georgiana lopez Result NATALIIA WOLFF (MK) 1 [facility] Department [place] [address] * (ABNORMAL) Lipid panel (07/19/2024 11:00 AM [...] last revised on 2017. Testing performed by: [facility], [address] [place] [address], [address] Triglycerides 51 <=149 mg/dL NATALIIA WOLFF (MK) [...] last revised on 2017. Testing performed by: [facility], [address] [place] [address]., [address] HDL 74 >=40 mg/dL NATALIIA WOLFF (MK) [...] last revised on 2017. Testing performed by: [facility], [address] [place] [address]., [address] LDL, calculated 147(H) <=129 mg/dL NATALIIA WOLFF [...] last revised on 2023. Testing performed by: [facility], [address] [place] [address]., [address] Non-HDL Cholesterol 156 mg/dL NATALIIA WOLFF (MK) [...] last revised on 2017. Testing performed by: [address] [address] Chol/HDL ratio 3 MONIK WOLFF (MK) Comment:Testing performed by : [address] [address] Blood 07/19/2024 11:0 0 AM CDT 07/19/2024 3:53 PM CDT Douglas Elliott MD LAB BLOOD ORDERABLES Georgiana lopez Result NATALIIA WOLFF (MK) 1 [facility] Department [place] [address] * (ABNORMAL) Comprehensive metabolic panel (07/19/2024 11:00 AM CDT) Sodium 140 135 - 145 mmol/L Comment:Testing performed by : [address] [address] Potassium, pl 4.3 3.3 - 4.9 mmol/L NATALIIA WOLFF (MK) Comment:Testing performed by : [address] [address] Chloride 103 97 - 110 mmol/L NATALIIA WOLFF (MK) Comment:Testing performed by : [address] [address] CO2 28 22 - 32 mmol/L [facility] (MK) Comment:Testing performed by : [facility], [address] [place] [address]., [address] Anion gap 9 2 - 15 mmol/L [facility] (MK) Comment:Testing performed by : [facility], [address] [place] [address]., [address] BUN 23 6 - 25 mg/dL [facility] (MK) Comment:Testing performed by : [address] [address] Creatinine 1.20(H) 0.60 - 1.10 mg/dL [facility] (MK) Comment:Testing performed by : [address], [address] Glucose 89 70 - 199 mg/dL CERNER [...] classification and Diagnosis of Diabetes Diabetes Care 202; 46: S19-S40. Current interpretive data was last revised 2022. Testing performed by: [address] [address] Calcium 10.2 8.5 - 10.3 mg/dL [facility] (MK) Comment:Testing performed by : [address] [address] Bilirubin, total 0.6 0.1 - 1.2 mg/dL [facility] (MK) Comment:Testing performed by : [address] [address] Protein, pl 7.2 6.5 - 8.5 g/dL [facility] (MK) Comment:Testing performed by : [address], [address] Albumin 4.2 3.5 - 5.0 g/dL [facility] (MK) Comment:Testing performed by : [address] [place] [address] Alk phos 78 40 - 130 Units/L [facility] (MK) Comment:Testing performed by : [facility], [address] [place] [address]., [address] ALT 16 7 - 45 Units/L [facility] (MK) Comment:Testing performed by : [facility], [address] [place] [address]., [address] AST 32 10 - 45 Units/L [facility] (MK) Comment:Testing performed by : [facility], [address] [place] [address]., [address] Blood 07/19/2024 11:0 0 AM CDT 07/19/2024 3:53 PM CDT Douglas Elliott MD LAB BLOOD ORDERABLES Georgiana l Result [facility] (MK) [facility] [place] [address] * Screening Mammogram Bilateral W Abraham (08/14/2023) [...] vitamin-D and calcium. History of skin carcinoma. 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 TW: TW Report ID: [id number] Reading Location: [id number] Procedure Note Martha Silva MD - 01/05/2023 EXAM DESCRIPTION: DEXA AXIAL SKELETON BONE DENSITY 1 OR MORE SITES REASON FOR STUDY: 67 y/o year old F with given history of:asymptomatic menopausal state Osteoporosis screening Post menopausal. Patient takes vitamin-D andcalcium. History of skin carcinoma. 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 TW: LINK Report ID: [id number] Reading Location: [place] [address] Douglas Elliott MD IMG DXA PROCEDURES Final Result * Colonoscopy (12/21/2011) Anatomical Region Laterality Modality Other Historical Provider ENDOSCOPY PROCEDURES Georgiana l Result from Last 3 Months or Most Recently Relevant to Health Maintenance Insurance [facility] MEDICARE [facility] MEDICARE Care Teams Sociology Teacher Relationship Specialty Start Date End Date [place] [address] PCP - General Family Medicine 11/18/18
--- OUTSIDE RECORDS SUMMARY | 2024-09-20 14:23 | XMS_ITS | Encounter Summary ---
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 Role Phone Unavailable Primary Care Provider Unavailabl e Encounter Details Date Type Department Care Team (Late st Contact Info) Description 09/28/2022 Lab Requisition [facility] - DermPath Lab [address] [place] [phone] Kay Chavis DO [address] [facility] [facility] [address] [place] [address] Social History Tobacco Use Types Packs/Day Years Used Date Smoking Tobacco: Never Smokeless Tobacco: Never Comments Unknown Sex and Gender Information Value Date Recorded Sex Assigned at Not on file Legal Sex Female 3:48 PM CDT Gender Identity Not on file Sexual Orientation Not on file documented as of this encounter Plan of Treatment Not on file documented as of this encounter Procedures Procedure Name Priority Date/Time Associated Diagnosis Comments DERMATOPATHOLOGY Routine 09/28/2022 9:22 AM CDT documented in this encounter Results * DERMATOPATHOLOGY (09/28/2022 9:22 AM CDT) Case Report Dermatopathology Report Case: [id number] Authorizing Provider: Kay Chavis DO Collected: 09/28/2022 09:22 AM Ordering Location: [facility] DermPath Lab Received: 09/28/2022 04:29 PM Pathologist: Kristine Eugene MD Specimen: Skin, right upper eyelid 6:56 PM CDT DERMATOPATHOLOGY LABORATORY Final Diagnosis Specimen A. SKIN, right upper eyelid: INTRADERMAL NEVUS, NEUROTIZED (D22.9) 3 6:56 PM CDT DERMATOPATHOLOGY LABORATORY at 1856 CDT Clinical History NEVUS IRRITATED 3 6:56 PM CDT DERMATOPATHOLOGY LABORATORY Gross Description Specimen A: Received is one formalin filled container labeled with the patient's name and designated right upper eyelid. The specimen consists of a shave biopsy measuring 5x4x4 mm. Jar 0. 3 6:56 PM CDT DERMATOPATHOLOGY LABORATORY Microscopic Description Specimen A. SKIN, right upper eyelid: Sections show nests, cords, and strands of cytologically bland melanocytes that mature with descent into the dermis. There are areas in which the melanocytes have a neuroid appearance. 3 6:56 PM CDT DERMATOPATHOLOGY LABORATORY Disclaimer An external and internal positive and negative controls are appropriate for the histochemical, immunohistochemical and immunofluorescence stain(s) in this case (if any), except where stated explicitly. The performance characteristics of the stain(s) cited in this report were developed and its performance characteristic determined by the Dermatopathology Laboratory at [facility], directed by Dr. Gurjit Mccann. These tests need not be, and therefore are not, approved by the [place] Food and Drug Administration. The tests are used for clinical purposes. Billing Codes Specimen Charges Stain Charges 93759 1 3 6:56 PM CDT DERMATOPATHOLOGY LABORATORY Embedded Images 3 6:56 PM CDT DERMATOPATHOLOGY LABORATORY Pathology/Cytolo gy TISSUE SPECIMEN FROM SKIN / Unknown 09/28/2022 9:22 AM CDT 09/28/2022 4:29 PM CDT us Kay Chavis DO LAB - PATHOLOGY/CYTOLOGY ORDERABLES Final Result DERMATOPATHOLOGY LABORATORY [facility] - Department of Dermatology [address], [address] [phone] documented in this encounter Visit Diagnoses Not on filedocumented in this encounter
--- OUTSIDE RECORDS SUMMARY | 2024-09-20 14:23 | XMS_ITS | Clinical Summary ---
Author Organization [facility] Address [address] [place] [address] Care Team Providers Care Coffee Host Name Role Phone Unavailable Primary Care Provider Unavailabl e Source Comments [facility] [employer],non-owned Affiliates and Associated Physician Practices is amultiple site organization consisting of ambulatory clinics and hospital sitesin [place], [place], [place] and [place]. This disclosure is being madepursuant to the Care Everywhere program and may not contain all information available regarding this patient. Last updated 17.[facility] [employer] Allergies Active Allergy Reactions Criticality Noted Date Comments Penicillins 12/28/2016 Medications * Be aware that medications may not be up to date on this document. Alwaysverify current medications with the patient. [place]-3 Fatty Acids (FISH OIL DELAYED RELEASE) 1000 MG capsule Take 2 capsules by mouth daily with food Active multivitamin daily tablet Take 1 tablet by mouth daily with food Active Calcium Citrate-Vitamin D (CALCIUM + D PO) Active Social History Tobacco Use Types Packs/Day Years Used Date Smoking Tobacco: Never Smokeless Tobacco: Never Comments Unknown Sex and Gender Information Value Date Recorded Sex Assigned at Not on file Legal Sex Female 3:48 PM CDT Gender Identity Not on file Sexual Orientation Not on file Last Filed Vital Signs Vital Sign Reading Time Taken Comments Blood Pressure 138/84 12/31/2017 4:33 PM CDT Pulse 91 12/31/2017 4:33 PM CDT Temperature 37.8 C (100.1 F) 12/31/2017 4:33 PM CDT Respiratory Rate - - Oxygen Saturation 97% 12/31/2017 4:33 PM CDT Inhaled Oxygen Concentration - - Weight 63.5 kg (140 lb) 12/31/2017 4:33 PM CDT Height 167.6 cm (5' 6) 12/31/2017 4:33 PM CDT Body Mass Index 22.6 12/31/2017 4:33 PM CDT Plan of Treatment Health Maintenance Due Date Last Done Comments BONE DENSITY TESTING 1954 COLOGUARD (AGES 45-75) - COL ON CA SCREENING 1954 COLON MONITORING 1954 COLONOSCOPY - COLON CA SCREENING 1954 CT COLONOGRAPHY - COLON CA SCREENING 1954 Colorectal Cancer Screening 1954 FIT - COLON CA SCREENING 1954 FLEX SIG - COLON CA SCREENING 1954 LIPID TESTING 1954 MAMMOGRAM 1954 HEPATITIS C SCREENING 02/21/1972 DTAP/TDAP/TD VACCINES (1 - Tdap) 1973 PNEUMOCOCCAL VACCINE 50+ (1 of 1 - PCV) 02/26/2004 ZOSTER VACCINE (1 of 2) 02/26/2004 COVID-19 VACCINE ( - 2023-2 5 season) 2023 DEPRESSION SCREENING 03/15/2024 MEDICARE AWV CALENDAR YEAR 2024 INFLUENZA VACCINE (Season Ended) 2024 Respiratory Syncytial Virus (RSV) Vaccine Pt: or over 60 yrs (1 - 1-dose 75+ series) 2029 HEPATITIS B VACCINE Aged Out No longe r eligible based on patient's age to complete this topic HIB VACCINE Aged Out No longer eligi ble based on patient's age to complete this topic HPV VACCINE Aged Out No longer eligi ble based on patient's age to complete this topic MENINGOCOCCAL (Group B) VACC INE SHARED DECISION-MAKING Aged Out No longer eligibl e based on patient's age to complete this topic MENINGOCOCCAL GROUPS A/C/Y/W VACCINE Aged Out No longer eligible b ased on patient's age to complete this topic Insurance [employer] AET MEDICARE ADV
== END 2024-09-20 14:12 | disposition home or self-care (01) ==
LOC: ANHIMG 14:14
PROVIDERS: PCP Family Medicine; Visit Provider Family Medicine
DX: Z12.31 Encounter for screening mammogram for malignant neoplasm of breast (principal)
CPT/HCPCS: 77063; 77067